=== PATIENT | male | born 1940 | race Caucasian/White ===

== ENCOUNTER 2017-01-16 15:58 | Emergency (ER) | payer OTHER, MEDICARE ==
[~2017-01-16] VITALS: Ht 188 cm; Wt 121.1 kg
[~2017-01-16 15:58] MED LIST: ATORVASTATIN CA20 M1 PO; ATORVASTATIN CA20 MG PO; AVALIDE 12.5 MG1 TAB PO; BACTRIM DS 8001 TAB PO; BUPROPION XL150 MG PO; CARDIZEM CD180 MG PO; COUMADIN2.5 M1 PO; COUMADIN5 M2 PO; DOXYCYCLINE100 MG PO; ELIQUIS5 MG PO; ESCITALOPRAM20 MG PO; IRBESARTAN-HCT1 EACH PO; KEFLEX500 MG PO; METOPROLOL SUC100 M2 PO; NEXIUM 40MG40 MG PO; NEXIUM40 M1 PO; TEGRETOL XR200 M1 PO; TRAVATAN Z5 ML OD; TRAZODONE HCL50 M1 PO
[2017-01-16 16:27] LABS: ABSOLUTE BASOPHIL COUNT 0 /CUMM (0.0-0.2); ABSOLUTE EOSINOPHIL COUNT 0 /CUMM (0.0-0.7); ABSOLUTE GRANULOCYTE CT 5.1 /CUMM (1.4-6.5); ABSOLUTE LYMPH COUNT 0.6 /CUMM (1.2-3.4); ABSOLUTE MONOCYTE COUNT 0.5 /CUMM (0.10-0.60); BASOPHIL % 0.1 % (0.0-2.0); EOSINOPHIL % 0 % (0-5); GRANULOCYTE % 83.2 % (42.2-75.2); HEMATOCRIT 47.2 % (42-52); MEAN CORPUSCULAR HGB 29.6 PG (27.0-31.0); MEAN CORPUSCULAR HGB CONC 33.9 G/DL (33.0-37.0); MEAN CORPUSCULAR VOLUME 87.4 FL (80.0-94.0); MEAN PLATELET VOLUME 8.3 FL (7.4-10.4); PLATELET COUNT 115 /CUMM (130-400); RBC DISTRIBUTION WIDTH 13.6 % (11.5-14.5); WHITE BLOOD CELL COUNT 6.1 /CUMM (4.8-10.8)
--- NOTE | 2017-01-16 16:27 | ED GENERAL ADULT ---
History of Present Illness General Chief Complaint: Animal/Insect Bite Stated Complaint: TICK BITES,VOMITING,FEVER Source: patient, family Exam Limitations: no limitations Vital Signs & Intake/Output Vital Signs & Intake/Output Vital Signs Date Time Temp Pulse Resp B/P B/P Pulse O2 O2 Flow FiO2 Mean Ox Delivery Rate 01/16 1824 99.0 75 18 119/77 95 Room Air 01/16 1729 98 Room Air 01/16 1705 99.6 01/16 1643 99.6 01/16 1603 96.5 94 18 120/72 94 Room Air Allergies Coded Allergies: NO KNOWN ALLERGIES (05/16/15) Reconcile Medications Apixaban (Eliquis) 5 MG TABLET 1 TAB PO BID BLOOD THINNER (Reported) Atorvastatin Calcium 20 MG TABLET 1 TAB PO DAILY CHOLESTEROL (Reported) Doxycycline Hyclate 100 MG CAPSULE 1 CAP PO BID TICK BITE Esomeprazole (Nexium) 40 MG CAPSULE.DR 1 CAP PO DAILY GERD (Reported) Furosemide (Unknown Strength) TABLET (Unknown Dose) UNKNOWN (Reported) Gabapentin 300 MG CAPSULE 1 CAP PO QPM SLEEP (Reported) Irbesartan/Hydrochlorothiazide (Irbesartan-Hctz 150-12.5 MG Tb) 1 EACH TABLET 2 TAB PO DAILY BP (Reported) Metoprolol Succinate 100 MG TAB.ER.24H 1 TAB PO DAILY HEART/BP (Reported) Ondansetron HCl (Zofran) 4 MG TABLET 1 TAB PO Q6-8P PRN NAUSEA Travoprost (Travatan Z) 0.004 % DROPS 1 GTT OD QPM RIGHT EYE (Reported) Vortioxetine Hydrobromide (Brintellix) 10 MG TABLET 1 TAB PO DAILY MENTAL HEALTH (Reported) Triage Note: PT STATES HE HAD TWO TICKS TAKEN OUT AND HE HAS A FEVER OF 101 WITH CHILLS THAT COMES AND GOES. PT STATES HE HAS BEEN VOMITING FOR 48HOURS AND HE HAS NO ENERGY. PT STATE HE HASN'T FELT LIKE EATING. Triage Nurses Notes Reviewed? yes Onset: Gradual Duration: getting worse Timing: recent history Severity: severe Severity Numbers: 7 HPI: Patient is a 76-year-old male with a past medical history of hypertension, hyperlipidemia, mitral valve prolapse, anxiety, depression atrial fibrillation currently on ELIQUIS who presents to emergency room stating that last week patient noted to have a tick bite embedded into his right periumbilical region where it was removed completely by his primary care doctor. Patient was not given any medications after. Patient states that he noted a tick bite to the left inner thigh 2 days ago where it was removed by an urgent care facility and patient will last 48 hours has developed a gradual onset of generalized weakness fatigue headaches body aches, decreased by mouth intake nausea and multiple episodes of nonbloody nonbilious emesis. Patient has not been able tolerate anything by mouth and last 24 hours. Last bowel movement was today no blood no melena noted. Denies any similar sick contacts. Denies any chest pain arm pain jaw pain cough shortness of breath or rash. (BRANDON SHAY) Past History Travel History Traveled to [place] past 21 day No Medical History Any Pertinent Medical History? see below for history Neurological: NONE EENT: glaucoma Cardiovascular: AFIB, hypertension, hyperlipidemia Respiratory: NONE Gastrointestinal: GERD Hepatic: NONE Renal: NONE Musculoskeletal: NONE Psychiatric: NONE Endocrine: NONE Blood Disorders: NONE Cancer(s): prostate cancer TAR MAN/Reproductive: NONE History of MRSA: No History of VRE: No History of CDIFF: No Surgical History Surgical History: appendectomy, hernia repair-inguinal, PROSTATECTOMY TONSILS Psychosocial History Who do you live with Patient/Self Services at Home None What is your primary language Dominican Tobacco Use: Quit >30 days ago ETOH Use: denies use Illicit Drug Use: denies illicit drug use Family History Family History, If Any: No Known Family History. Hx Contributory? No (BRANDON SHAY) Review of Systems Review of Systems Constitutional: Reports: see HPI, chills, fever. EENTM: Reports: no symptoms. Respiratory: Reports: no symptoms. Cardiovascular: Reports: no symptoms. GI: Reports: see HPI, nausea. Genitourinary: Reports: no symptoms. Musculoskeletal: Reports: see HPI. Skin: Reports: see HPI. Neurological/Psychological: Reports: see HPI, headache. Hematologic/Endocrine: Reports: no symptoms. Immunologic/Allergic: Reports: no symptoms. All Other Systems: Reviewed and Negative (BRANDON SHAY) Physical Exam Physical Exam General Appearance: no apparent distress, obese Comments: HEENT: Normal EENT exam, extraocular motion intact, no nystagmus. Pupils equally round and reactive to light and accommodation. Nose is atraumatic. External auditory canal and Tympanic membranes clear. Pharynx normal. No swelling or edema. Neck: Supple, no lymphadenopathy, normal range of motion without pain or tenderness Back: Nontender, no CVA tenderness. Cardiovascular: IRRegular rate and rhythms no murmurs rubs or gallops, normal JVP Respiratory: Chest nontender. No respiratory distress.breath sounds clear to auscultation bilaterally Abdomen: Soft, nondistended, no appreciable organomegaly. Normal bowel sounds. No ascites Noted supraumbilical hernia noted periumbilical point tenderness Extremity: No edema, no calf tenderness to palpation, normal and equal pulses. Neuro: Alert oriented x3, motor sensory normal, Skin: No appreciable rash on exposed skin, skin is warm and dry. Psych: Mood and affect is normal, memory and judgment is normal. Core Measures ACS in differential dx? No CVA/TIA Diagnosis: No Severe Sepsis Present: No Septic Shock Present: No Diagram Body: 1) Noted circular 2 mm well-healing skin scab noted no foreign bodies noted 2) Noted 4 mm well-healing skin scab with no foreign body noted (KRISH SUN,BRANDON) Progress Differential Diagnoses I considered the following diagnoses in my evaluation of the patient: [LYME disease, SBO, sepsis, viral syndrome, pancreatitis, cholecystitis,PNA, URI, EM,] Plan of Care: Orders Procedure Date/time Status Add-on Test (ER Only) 01/16 1640 Active LIPASE 01/16 1619 Complete LACTIC ACID 01/16 1619 Complete AMYLASE 01/16 1619 Complete Telemetry/Staff Mine Warfare Officer 01/16 1613 Active BLOOD CULTURE 01/16 1613 Active TROPONIN LEVEL 01/16 1605 Complete LYME TITRE 01/16 1605 Active COMPREHENSIVE METABOLIC PANEL 01/16 1605 Complete CBC WITHOUT DIFFERENTIAL 01/16 1605 Complete EKG 01/16 1605 Active Laboratory Tests 01/16/17 1619: Anion Gap 11, Estimated GFR 59 L, BUN/Creatinine Ratio 27.5 H, Glucose 109 H, Lactic Acid 1.1, Calcium 8.6, Total Bilirubin 1.3, AST 43, ALT 44, Alkaline Phosphatase 69, Troponin I 0.01, Total Protein 6.0 L, Albumin 3.8, Globulin 2.2 , Albumin/Globulin Ratio 1.7, Amylase 36, Lipase 72, CBC w Diff NO MAN DIFF REQ, RBC 5.40, MCV 87.4, MCH 29.6, RDW 13.6, MPV 8.3, Gran % 83.2 H, Lymphocytes % 9.1 L, Monocytes % 7.6, Eosinophils % 0, Basophils % 0.1, Absolute Granulocytes 5.1, Absolute Lymphocytes 0.6 L, Absolute Monocytes 0.5, Absolute Eosinophils 0 , Absolute Basophils 0, PUBS MCHC 33.9, Lyme Disease Antibody Pending Microbiology 01/16 1649 BLOOD: Blood Culture - RECD 01/16 1649 BLOOD: Blood Culture - RECD To patient's left inner thigh under otoscope there was a minimal superficial dark speck to the skin scabs in which using forceps this was removed however this was undetermined if it was a tick foreign body or well-healing skin Alcohol then was used Patient tolerated well Patient currently is afebrile. Patient has unremarkable blood work unremarkable CT scan of chest and abdomen. Patient was able tolerate by mouth point discharge patient had significant resolution of nausea and improvement of presenting complaints. Discussed patient with who agrees with disposition and plan Upon discharge patient looks well no apparent distress and will comply with discharge instructions and had no questions (KRISH SUN,BRANDON) Diagnostic Imaging: Viewed by Me: CT Scan. Radiology Impression: SEE COMMENTS Initial ED EKG: ATRIAL FIBRILLATION NOTED 138 BPM Prior EKG: unchanged Comments: PATIENT: ALIE SANTOS PRESENT AGE: 76 PATIENT ACCOUNT NO: [id number] : 39 LOCATION: [facility] ORDERING PHYSICIAN: BRANDON SUN SERVICE DATE: 01/16/17 EXAM TYPE: CAT - CT ABD & PELVIS W IV CONTRAST; CT CHEST W IV CONTRAST EXAMINATION: CT CHEST, ABDOMEN, PELVIS WITH CONTRAST CLINICAL INFORMATION: Fever, abdominal pain, nausea and vomiting, question fluid in the lung. COMPARISON: Chest x-ray from 03/25/2016 TECHNIQUE: Multidetector volumetric CT imaging of the chest, abdomen, and pelvis was obtained after the administration of 94 mL of Optiray 320 intravenous contrast without immediate adverse reactions. Axial MIP volume rendering provided of the chest. Sagittal and coronal reformatted images were obtained. 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 There are clips in the pelvis bilaterally. LUNGS: There is platelike opacity in the lingula and left base, and milder but similar platelike opacity in the right base. There appears to be mild cylindrical bronchiectasis in these locales. No convincing mucous plugging. There is a subsolid 6 mm opacity within the right upper lobe (series 5 image 158). There is mild fibrosis adjacent to some spinal osteophytes in the parasagittal right lower lobe. MEDIASTINUM: The aortic arch appears normal in caliber. The main pulmonary artery is normally opacified. The heart size is normal. There is a trace amount of pericardial fluid. Minor coronary calcification is present. No mediastinal or hilar adenopathy. No focal lesions in the imaged portions of the thyroid. PLEURA: No pleural effusion or pleural nodularity. AXILLA: No lymphadenopathy. Abdomen/pelvis: The liver is normal in appearance and contour without discrete hepatic lesions or intrahepatic ductal dilatation. There is a punctate density within the gallbladder lumen suggesting a gallstone. The gallbladder is normal in caliber without pericholecystic fluid or gallbladder wall thickening. No adrenal lesions. The spleen and pancreas are unremarkable. No extrahepatic ductal dilatation. Neither kidney demonstrates hydronephrosis. There is a tiny hypoattenuating focus within the lower pole of the left lobe measuring 3 mm, too small to characterize, but statistically a cyst. No abnormalities along the course of either ureter. The bladder appears unremarkable. The aorta demonstrates scattered atherosclerotic calcification without aneurysmal dilatation. The portal vein is patent. No mesenteric, retroperitoneal, pelvic sidewall or inguinal adenopathy. There is a fat-containing right inguinal hernia. There has been a prostatectomy. Scattered clips are seen within the prostatectomy bed as well as along the bilateral iliac chain. No free air or free fluid. There are scattered colonic diverticula without evidence of diverticulitis. There is some suture material adjacent to the cecum which may reflect prior appendectomy. An appendix is not visualized. Loops of small bowel are normal in caliber. There is transitional anatomy at the lumbosacral junction with sacralization of L5 is right transverse processes fused with the sacrum. No compression deformities in the spine. There is mild multilevel spondylosis. There is a lucent and sclerotic, oval, circumscribed 1.3 cm lesion within the L3 vertebral body, nonspecific. IMPRESSION: No acute intrathoracic, intra-abdominal or intrapelvic pathology is convincingly visualized. Platelike opacities within the lower lobes bilaterally as well as within the lingula, most suggestive of atelectasis or scar. There is mild associated lower lobe bronchiectasis visualized. 6 mm subsolid opacity within the right upper lobe. Per Fleischner 2017 guidelines, follow-up CT at 6-12 months is suggested. Punctate density within the gallbladder lumen suggesting cholelithiasis. No evidence of cholecystitis. 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 Colonic diverticula without diverticulitis. Transitional anatomy at the lumbosacral junction with sacralization of L5. Nonspecific 1.3 cm lucent and sclerotic well-circumscribed oval lesion within the L3 vertebral body. DICTATED BY: JORGE MALDONADO MD DATE/TIME DICTATED:01/16/171741 MORTAR MAKER:RICARDO DATE/TIME TRANSCRIBED:01/16/171741 (BRANDON SHAY) Departure Departure Disposition: HOME OR SELF CARE Condition: Stable Clinical Impression Primary Impression: Viral syndrome Secondary Impressions: Nausea & vomiting, Tick bite Referrals: BENITO EUCEDA,CHAVA Vargas (PCP/Family) Additional Instructions: As discussed begin the prescription of doxycycline as directed for the full course. Begin the prescription of Zofran for future nausea. Begin eating a well healthy balanced diet and drink plenty of fluids. If no better on Thursday follow-up with your primary care doctor. If symptoms worsen or if you develop any new concerning symptom return to emergency room. Prescriptions are waiting at [facility] pharmacy Departure Forms: Customer Survey General Discharge Information Prescriptions: Current Visit Scripts Doxycycline Hyclate 1 CAP PO BID #20 CAP Ondansetron HCl (Zofran) 1 TAB PO Q6-8P PRN NAUSEA #15 TAB (BRANDON SHAY) PA/SAFETY AND SECURITY MANAGER Co-Sign Statement Statement: ED Attending supervision documentation- [x] I saw and evaluated the patient. I have also reviewed all the pertinent lab results and diagnostic results. I agree with the findings and the plan of care as documented in the PA's/SAFETY AND SECURITY MANAGER's documentation. [] I have reviewed the ED Record and agree with the PA's/SAFETY AND SECURITY MANAGER's documentation. [] Additions or exceptions (if any) to the PAs/SAFETY AND SECURITY MANAGER's note and plan are summarized below: [] (RITU MORATAYA,DESEAN Espitia) Critical Care Note Critical Care Note Critical Care Time: non-applicable (BRANDON SHAY)
[2017-01-16] MEDS ORDERED: GABAPENTIN300 M2 PO (16:52)
[2017-01-16] MEDS ORDERED: BRINTELLIX10 M1 PO (16:53)
[2017-01-16] MEDS ORDERED: ELIQUIS5 M1 PO (16:53)
[2017-01-16] MEDS ORDERED: FUROSEMIDE20 M1 (16:54)
--- NOTE | 2017-01-16 17:58 | CT SCAN REPORT ---
EXAMINATION: CT CHEST, ABDOMEN, PELVIS WITH CONTRAST CLINICAL INFORMATION: Fever, abdominal pain, nausea and vomiting, question fluid in the lung. COMPARISON: Chest x-ray from 03/25/2016 TECHNIQUE: Multidetector volumetric CT imaging of the chest, abdomen, and pelvis was obtained after the administration of 94 mL of Optiray 320 intravenous contrast without immediate adverse reactions. Axial MIP volume rendering provided of the chest. Sagittal and coronal reformatted images were obtained. 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 There are clips in the pelvis bilaterally. LUNGS: There is platelike opacity in the lingula and left base, and milder but similar platelike opacity in the right base. There appears to be mild cylindrical bronchiectasis in these locales. No convincing mucous plugging. There is a subsolid 6 mm opacity within the right upper lobe (series 5 image 158). There is mild fibrosis adjacent to some spinal osteophytes in the parasagittal right lower lobe. MEDIASTINUM: The aortic arch appears normal in caliber. The main pulmonary artery is normally opacified. The heart size is normal. There is a trace amount of pericardial fluid. Minor coronary calcification is present. No mediastinal or hilar adenopathy. No focal lesions in the imaged portions of the thyroid. PLEURA: No pleural effusion or pleural nodularity. AXILLA: No lymphadenopathy. Abdomen/pelvis: The liver is normal in appearance and contour without discrete hepatic lesions or intrahepatic ductal dilatation. There is a punctate density within the gallbladder lumen suggesting a gallstone. The gallbladder is normal in caliber without pericholecystic fluid or gallbladder wall thickening. No adrenal lesions. The spleen and pancreas are unremarkable. No extrahepatic ductal dilatation. Neither kidney demonstrates hydronephrosis. There is a tiny hypoattenuating focus within the lower pole of the left lobe measuring 3 mm, too small to characterize, but statistically a cyst. No abnormalities along the course of either ureter. The bladder appears unremarkable. The aorta demonstrates scattered atherosclerotic calcification without aneurysmal dilatation. The portal vein is patent. No mesenteric, retroperitoneal, pelvic sidewall or inguinal adenopathy. There is a fat-containing right inguinal hernia. There has been a prostatectomy. Scattered clips are seen within the prostatectomy bed as well as along the bilateral iliac chain. No free air or free fluid. There are scattered colonic diverticula without evidence of diverticulitis. There is some suture material adjacent to the cecum which may reflect prior appendectomy. An appendix is not visualized. Loops of small bowel are normal in caliber. There is transitional anatomy at the lumbosacral junction with sacralization of L5 is right transverse processes fused with the sacrum. No compression deformities in the spine. There is mild multilevel spondylosis. There is a lucent and sclerotic, oval, circumscribed 1.3 cm lesion within the L3 vertebral body, nonspecific. IMPRESSION: No acute intrathoracic, intra-abdominal or intrapelvic pathology is convincingly visualized. Platelike opacities within the lower lobes bilaterally as well as within the lingula, most suggestive of atelectasis or scar. There is mild associated lower lobe bronchiectasis visualized. 6 mm subsolid opacity within the right upper lobe. Per Fleischner 2017 guidelines, follow-up CT at 6-12 months is suggested. Punctate density within the gallbladder lumen suggesting cholelithiasis. No evidence of cholecystitis. 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 Colonic diverticula without diverticulitis. Transitional anatomy at the lumbosacral junction with sacralization of L5. Nonspecific 1.3 cm lucent and sclerotic well-circumscribed oval lesion within the L3 vertebral body.
[2017-01-16 18:24] VITALS: BP 119/77
[2017-01-16] MEDS ORDERED: DOXYCYCLINE HY100 M2 PO (18:46)
[2017-01-16] MEDS ORDERED: ZOFRAN4 M2 PO (18:46)
== END 2017-01-16 18:45 ==
LOC: ERH 15:58
PROVIDERS: Emergency Medicine
DX: B34.9 Viral infection, unspecified (principal); S30.861A Insect bite (nonvenomous) of abdominal wall, initial encounter; W57.XXXA Bitten or stung by nonvenomous insect and other nonvenomous arthropods, initial encounter
CPT/HCPCS: 86618; 74177; 87040; 93005; 93010; 96374; J2405